=== PATIENT | female | born 1995 | race Caucasian/White ===

== ENCOUNTER 2023-08-08 03:27 | Day surgery (SDC) | payer OTHER ==
[2023-08-07 12:02] VITALS: BMI 22.1
[2023-08-08] MEDS ORDERED: ROCURONIUM BROMIDE 50 MG/5 ML SYRINGE ONE (07:43)
[2023-08-08] MEDS ORDERED: MIDAZOLAM HCL 2 MG/2 ML SINGLE DOSE VIAL ONE (07:43)
[2023-08-08] MEDS ORDERED: PROPOFOL 20 ML ONE (07:57)
[2023-08-08] MEDS ORDERED: FENTANYL CITRATE/PF 50 MCG/ML VIAL ONE (07:58)
[2023-08-08] MEDS ORDERED: ceFAZolin SODIUM 1 GM VIAL IVPB ONE (08:05)
[2023-08-08] MEDS ORDERED: ONDANSETRON 4 MG/2 ML VIAL ONE (08:13)
[2023-08-08] MEDS ORDERED: METOCLOPRAMIDE HCL INJECTION 10 MG/2 ML VIAL ONE (08:13)
[2023-08-08] MEDS ORDERED: DEXAMETHASONE SOD PHOSPHATE 4 MG/1 ML VIAL ONE (08:13)
[2023-08-08] MEDS ORDERED: LIDOCAINE HCL/PF 2% SDV 5ML VIAL ONE (08:13)
[2023-08-08] MEDS ORDERED: ceFAZolin SODIUM 1 GM VIAL ONE (08:13)
[2023-08-08] MEDS ORDERED: SUGAMMADEX SODIUM 200 MG/2 ML VIAL ONE (08:25)
[2023-08-08] MEDS ORDERED: oxyCODONE HCL 5 MG TABLET PO PRN ×2 (09:55→09:56)
[2023-08-08] MEDS ORDERED: ACETAMINOPHEN 325 MG TABLET (FP) PO PRN (09:55)
[2023-08-08] MEDS ORDERED: ONDANSETRON 4 MG/2 ML VIAL IVPUSH PRN (09:56)
[2023-08-08] MEDS ORDERED: LACTATED RINGERS SOLUTION 1,000 ML IV SCH (10:00)
[2023-08-08 13:14] VITALS: BP 121/86; PULSE 94; RESP 18
[2023-08-08 15:07] VITALS: TEMP 97.4
== END 2023-08-08 13:00 | disposition home or self-care (01) ==
LOC: JASU-SURG 03:27
PROVIDERS: ATTEND Otolaryngology
PROC: 0WB60ZZ Excision of Neck, Open Approach (ICD-10-PCS; principal; 2023-08-08 08:00)
DX: Q89.2 Congenital malformations of other endocrine glands (principal)
CPT/HCPCS: 81025; 88305-TC; 88311-TC; 94760